=== PATIENT | female | born 1990 | race African-American/Black ===

== ENCOUNTER 2021-03-17 11:30 | Emergency (ER) | payer SELFPAY ==
[2021-03-17 13:32] LABS: #Eosinphils 0.1 thou/uL (0.0-0.7); #Lymphocytes 1.5 thou/uL (1.20-3.40); #Monocytes 0.4 thou/uL (0.11-0.59); #Neutrophils 3.8 thou/uL (1.40-6.50); %Eosinophils 1.9 % (0.0-10.0); %Lymphocytes 25.5 % (21.0-51.0); %Monocytes 7.4 % (0.0-10.0); %Neutrophils 65.2 % (42.0-75.0); Hemoglobin 14.1 g/dL (12.0-16.0); Mean Corpuscular HGB CONC 32.1 g/dL (32.0-36.0); Mean Corpuscular Hemoglobin 28.3 pg (27.0-31.0); Mean Corpuscular Volume 88.1 fL (78.0-98.0); Mean Platelet Volume 9.4 fL (7.4-10.4); Platelet Count 221 thou/uL (130-400); RBC Distribution Width 14.5 % (11.5-14.5); Red Blood Cell (RBC) Count 4.97 mill/uL (4.20-5.40); White Blood Cell (WBC) Count 5.8 thou/uL (4.8-10.8)
[2021-03-17] MEDS ORDERED: Ibuprofen 800 MG TAB ONE (14:04)
[2021-03-17] MEDS ORDERED: Acetaminophen 500 MG TAB ONE (14:04)
[2021-03-17 14:06] LABS: ALT (SGPT) 17 U/L (8-55); AST (SGOT) 18 U/L (5-34); Albumin 3.5 g/dL (3.5-5.0); Alkaline Phosphatase 63 U/L (40-110); Anion Gap 12 mmol/L (10-20); BUN (Urea Nitrogen) 10 mg/dL (7.0-18.7); Bilirubin, Total 0.6 mg/dL (0.2-1.2); Calc. Creatinine Clearance 0 mL/min (70-130); Calcium 9.1 mg/dL (7.8-10.44); Carbon Dioxide 22 mmol/L (22-29); Chloride 106 mmol/L (98-107); Globulin 5.1 g/dL (2.4-3.5); Glucose 103 mg/dL (70-105); Potassium 3.6 mmol/L (3.5-5.1); Protein, Total 8.6 g/dL (6.0-8.3); Sodium 136 mmol/L (136-145)
== END 2021-03-17 14:56 | disposition home or self-care (01) ==
LOC: ERS 11:30
DX: L08.0 Pyoderma (principal); M32.9 Systemic lupus erythematosus, unspecified; Z79.899 Other long term (current) drug therapy; Z79.52 Long term (current) use of systemic steroids; I10 Essential (primary) hypertension
CPT/HCPCS: 36415; 80053; 85025; 87040; 99283

== ENCOUNTER 2022-06-28 17:29 | Inpatient (IN) | payer BC ==
[2022-06-28] MEDS ORDERED: Ondansetron PF 4 MG/2 ML Vial IVP PRN (19:47)
[2022-06-28] MEDS ORDERED: Acetaminophen 325 MG TAB PO PRN (19:47)
[2022-06-28] MEDS ORDERED: Ondansetron ODT 4 MG TAB PO PRN (19:47)
[2022-06-28] MEDS ORDERED: Potassium Chloride 20 MEQ TAB PO SCH (21:00)
[2022-06-28 21:07] LABS: Hemoglobin 12.5 g/dL (12.0-16.0); Mean Corpuscular HGB CONC 33.1 g/dL (32.0-36.0); Mean Corpuscular Hemoglobin 29.8 pg (27.0-31.0); Platelet Count 196 10x3/uL (130-400); RBC Distribution Width 13.2 % (11.5-14.5); Red Blood Cell (RBC) Count 4.21 mill/uL (4.20-5.40); White Blood Cell (WBC) Count 3.6 10x3/uL (4.8-10.8)
[2022-06-28 21:22] LABS: Anion Gap 10 mmol/L (10-20); BUN (Urea Nitrogen) 9 mg/dL (7.0-18.7); Calc. Creatinine Clearance 0 mL/min (70-130); Calcium 8.9 mg/dL (7.8-10.44); Carbon Dioxide 19 mmol/L (22-29); Chloride 110 mmol/L (98-107); Estimated GFR 86; Glucose 71 mg/dL (70-105); Phosphorus 3.5 mg/dL (2.3-4.7); Potassium 3.4 mmol/L (3.5-5.1); Sodium 136 mmol/L (136-145)
[2022-06-28] MEDS: Metoprolol Tartrate 25 MG TAB PO SCH (21:24)
[2022-06-28 21:27] VITALS: BMI 44.3
[2022-06-28 21:28] LABS: Band 8 % (5-11); Eosinophils 4 % (0-10); Lymphocytes 23 % (21-51); MDiff Complete? YES; Monocytes 14 % (0-10); Neutrophil 50 % (42-75)
[2022-06-28] MEDS: VANCOMYCIN 2 GRAM/500 ML BAG 2 GM in Premix Bag 1 BAG IVPB SCH (22:14)
[2022-06-28] MEDS: Morphine 4 MG/ML VIAL SLOW IVP PRN (22:15)
[2022-06-28] MEDS: diphenhydrAMINE 50 MG/ML VIAL IVP SCH (22:15)
[2022-06-28] MEDS: Apixaban 5 MG TAB PO SCH (22:16)
[2022-06-28] MEDS ORDERED: Electrolyte Replacement Protocol 1 EACH FS SCH (23:15)
[2022-06-29] MEDS ORDERED: Magnesium 2 GM/50 ML(in water) 2 GM in Premix Bag 1 BAG IVPB SCH ×2 (01:00→21:30)
[2022-06-29] MEDS: Morphine 4 MG/ML VIAL SLOW IVP PRN ×5 (02:26→21:30)
[2022-06-29] MEDS: diphenhydrAMINE 50 MG/ML VIAL IVP SCH ×3 (06:25→21:32)
[2022-06-29] MEDS: VANCOMYCIN 2 GRAM/500 ML BAG 2 GM in Premix Bag 1 BAG IVPB SCH ×3 (06:26→22:53)
[2022-06-29] MEDS: Lisinopril 10 MG TAB PO SCH (08:38)
[2022-06-29] MEDS: Apixaban 5 MG TAB PO SCH ×2 (08:40→21:27)
[2022-06-29] MEDS: DULoxetine 30 MG CAP PO SCH (08:40)
[2022-06-29] MEDS: Metoprolol Tartrate 25 MG TAB PO SCH ×2 (08:40→21:27)
[2022-06-29] MEDS ORDERED: Hydroxychloroquine Sulfate 200 MG TAB PO SCH (09:00)
[2022-06-29] MEDS ORDERED: Mycophenolate 250 MG CAP PO SCH (09:00)
[2022-06-29] MEDS ORDERED: Acetaminophen/Codeine 30-300mg Tablet PO PRN (14:01)
[2022-06-29] MEDS: Clindamycin/D5W 900 MG in Premix Bag 1 BAG IVPB SCH ×2 (15:53→21:27)
[2022-06-29 17:14] LABS: #Eosinphils 0.2 thou/uL (0.0-0.7); #Lymphocytes 0.9 thou/uL (1.20-3.40); #Monocytes 0.5 thou/uL (0.11-0.59); #Neutrophils 1.7 thou/uL (1.40-6.50); %Basophils 0.2 % (0.0-1.0); %Lymphocytes 28.6 % (21.0-51.0); %Monocytes 14.4 % (0.0-10.0); %Neutrophils 51.8 % (42.0-75.0); Hemoglobin 12.2 g/dL (12.0-16.0); Mean Corpuscular HGB CONC 34.1 g/dL (32.0-36.0); Mean Corpuscular Hemoglobin 30.5 pg (27.0-31.0); Mean Corpuscular Volume 89.3 fl (78.0-98.0); Mean Platelet Volume 10.3 fL (7.4-10.4); Platelet Count 167 10x3/uL (130-400); RBC Distribution Width 13.2 % (11.5-14.5); Red Blood Cell (RBC) Count 4.01 mill/uL (4.20-5.40); White Blood Cell (WBC) Count 3.2 10x3/uL (4.8-10.8)
[2022-06-29 17:25] LABS: Anion Gap 11 mmol/L (10-20); BUN (Urea Nitrogen) 10 mg/dL (7.0-18.7); Calc. Creatinine Clearance 208 mL/min (70-130); Calcium 8.4 mg/dL (7.8-10.44); Carbon Dioxide 20 mmol/L (22-29); Chloride 109 mmol/L (98-107); Estimated GFR 92; Glucose 91 mg/dL (70-105); Potassium 3.8 mmol/L (3.5-5.1); Sodium 136 mmol/L (136-145)
[2022-06-29] MEDS: Acetaminophen/Codeine 30-300mg Tablet PO PRN ×2 (17:48→23:54)
[2022-06-29] MEDS: Hydroxychloroquine Sulfate 200 MG TAB PO SCH (21:27)
[2022-06-29 21:58] LABS: Vancomycin, Trough 26.2 ug/mL
[2022-06-30 02:50] LABS: Vancomycin, Random 18.4 ug/mL (See Comment)
[2022-06-30] MEDS: Vancomycin 1.5 GRAM/300 ML BAG 1.5 GM in Premix Bag 1 BAG IVPB SCH ×3 (05:05→20:33)
[2022-06-30] MEDS: Clindamycin/D5W 900 MG in Premix Bag 1 BAG IVPB SCH (05:06)
[2022-06-30] MEDS: diphenhydrAMINE 50 MG/ML VIAL IVP SCH ×3 (05:06→20:38)
[2022-06-30] MEDS: Morphine 4 MG/ML VIAL SLOW IVP PRN ×4 (05:06→20:47)
[2022-06-30 06:44] LABS: Hemoglobin 12.5 g/dL (12.0-16.0); Mean Corpuscular HGB CONC 32.1 g/dL (32.0-36.0); Mean Corpuscular Hemoglobin 29.3 pg (27.0-31.0); Mean Corpuscular Volume 91.1 fl (78.0-98.0); Mean Platelet Volume 9.6 fL (7.4-10.4); Platelet Count 209 10x3/uL (130-400); RBC Distribution Width 13.5 % (11.5-14.5); Red Blood Cell (RBC) Count 4.27 mill/uL (4.20-5.40); White Blood Cell (WBC) Count 3.1 10x3/uL (4.8-10.8)
[2022-06-30 07:00] LABS: Anion Gap 11 mmol/L (10-20); BUN (Urea Nitrogen) 13 mg/dL (7.0-18.7); Calc. Creatinine Clearance 205 mL/min (70-130); Calcium 8.5 mg/dL (7.8-10.44); Carbon Dioxide 21 mmol/L (22-29); Chloride 109 mmol/L (98-107); Estimated GFR 91; Glucose 77 mg/dL (70-105); Magnesium 2.4 mg/dL (1.6-2.6); Sodium 137 mmol/L (136-145)
[2022-06-30 07:37] LABS: SARS-CoV-2 NAA Rapid Test Not Detected (NotDetected)
[2022-06-30 08:30] LABS: Band 13 % (5-11); Eosinophils 4 % (0-10); Lymphocytes 39 % (21-51); MDiff Complete? YES; Monocytes 13 % (0-10); Neutrophil 31 % (42-75); RBC Morphology Normal
[2022-06-30] MEDS: Metoprolol Tartrate 25 MG TAB PO SCH ×2 (08:43→20:33)
[2022-06-30] MEDS: Apixaban 5 MG TAB PO SCH ×2 (08:43→20:33)
[2022-06-30] MEDS: DULoxetine 30 MG CAP PO SCH (08:43)
[2022-06-30] MEDS: Lisinopril 10 MG TAB PO SCH (08:43)
[2022-06-30] MEDS: Acetaminophen/Codeine 30-300mg Tablet PO PRN ×3 (08:43→23:20)
[2022-06-30] MEDS: Hydroxychloroquine Sulfate 200 MG TAB PO SCH ×2 (08:43→20:35)
[2022-06-30 13:29] LABS: BHCG - Serum Negative (NEGATIVE); Pregs Control Background? CLEAR/WHITE (CLR/WHITE); Pregs Control Bar Appear? YES (CONTROL BAR)
[2022-06-30] MEDS: Nystatin Cream 30 GM TUBE TOP SCH ×2 (13:59→20:35)
[2022-06-30] MEDS: Ketoconazole 2% Cream 15 gm Tube TOP SCH ×2 (13:59→20:36)
[2022-06-30] MEDS: Mycophenolate 250 MG CAP PO SCH (20:34)
[2022-07-01] MEDS: diphenhydrAMINE 50 MG/ML VIAL IVP SCH ×3 (05:06→20:21)
[2022-07-01] MEDS: Morphine 4 MG/ML VIAL SLOW IVP PRN ×5 (05:06→21:07)
[2022-07-01] MEDS: Vancomycin 1.5 GRAM/300 ML BAG 1.5 GM in Premix Bag 1 BAG IVPB SCH ×2 (05:06→20:19)
[2022-07-01 05:08] LABS: Hemoglobin 11.4 g/dL (12.0-16.0); Mean Corpuscular HGB CONC 32.8 g/dL (32.0-36.0); Mean Corpuscular Hemoglobin 29.4 pg (27.0-31.0); Mean Corpuscular Volume 89.7 fl (78.0-98.0); Mean Platelet Volume 9.5 fL (7.4-10.4); Platelet Count 206 10x3/uL (130-400); RBC Distribution Width 13.2 % (11.5-14.5); Red Blood Cell (RBC) Count 3.89 mill/uL (4.20-5.40); White Blood Cell (WBC) Count 3.5 10x3/uL (4.8-10.8)
[2022-07-01 05:21] LABS: Anion Gap 10 mmol/L (10-20); BUN (Urea Nitrogen) 14 mg/dL (7.0-18.7); Calc. Creatinine Clearance 210 mL/min (70-130); Calcium 8.5 mg/dL (7.8-10.44); Carbon Dioxide 21 mmol/L (22-29); Chloride 110 mmol/L (98-107); Estimated GFR 93; Glucose 77 mg/dL (70-105); Potassium 4.1 mmol/L (3.5-5.1); Sodium 137 mmol/L (136-145)
[2022-07-01 05:23] LABS: Vancomycin, Trough 27.7 ug/mL
[2022-07-01] MEDS ORDERED: Lidocaine 1% w/Epinephrine 1:200K 30 ML VIAL FS SCH (05:30)
[2022-07-01 05:50] LABS: Band 11 % (5-11); Eosinophils 3 % (0-10); Lymphocytes 32 % (21-51); MDiff Complete? YES; Monocytes 12 % (0-10); Neutrophil 42 % (42-75)
[2022-07-01] MEDS: Lisinopril 10 MG TAB PO SCH (09:25)
[2022-07-01] MEDS: Mycophenolate 250 MG CAP PO SCH ×2 (09:26→20:19)
[2022-07-01] MEDS: DULoxetine 30 MG CAP PO SCH (09:26)
[2022-07-01] MEDS: Ketoconazole 2% Cream 15 gm Tube TOP SCH ×2 (09:27→20:21)
[2022-07-01] MEDS: Metoprolol Tartrate 25 MG TAB PO SCH ×2 (09:27→20:21)
[2022-07-01] MEDS: Nystatin Cream 30 GM TUBE TOP SCH ×2 (09:27→20:21)
[2022-07-01] MEDS: Hydroxychloroquine Sulfate 200 MG TAB PO SCH ×2 (09:27→20:20)
[2022-07-01] MEDS: Apixaban 5 MG TAB PO SCH ×2 (09:28→20:20)
[2022-07-01] MEDS: Acetaminophen/Codeine 30-300mg Tablet PO PRN (20:20)
[2022-07-02] MEDS: Acetaminophen/Codeine 30-300mg Tablet PO PRN (05:38)
[2022-07-02] MEDS: diphenhydrAMINE 50 MG/ML VIAL IVP SCH ×4 (06:45→21:17)
[2022-07-02] MEDS: Hydroxychloroquine Sulfate 200 MG TAB PO SCH ×2 (09:16→21:19)
[2022-07-02] MEDS: Apixaban 5 MG TAB PO SCH ×2 (09:16→21:19)
[2022-07-02] MEDS: Lisinopril 10 MG TAB PO SCH ×2 (09:16→21:19)
[2022-07-02] MEDS: Ketoconazole 2% Cream 15 gm Tube TOP SCH ×2 (09:16→21:18)
[2022-07-02] MEDS: Nystatin Cream 30 GM TUBE TOP SCH ×2 (09:16→21:18)
[2022-07-02] MEDS: Metoprolol Tartrate 25 MG TAB PO SCH ×2 (09:16→21:18)
[2022-07-02] MEDS: DULoxetine 30 MG CAP PO SCH (09:16)
[2022-07-02] MEDS: Mycophenolate 250 MG CAP PO SCH ×2 (09:22→21:17)
[2022-07-02] MEDS: Vancomycin 1.5 GRAM/300 ML BAG 1.5 GM in Premix Bag 1 BAG IVPB SCH ×2 (11:42→21:17)
[2022-07-02] MEDS: Morphine 4 MG/ML VIAL SLOW IVP PRN ×3 (11:42→21:24)
[2022-07-02] MEDS ORDERED: Amlodipine 10 MG TAB PO SCH (16:15)
[2022-07-02 16:56] LABS: Hemoglobin 11.2 g/dL (12.0-16.0); Mean Corpuscular HGB CONC 33.7 g/dL (32.0-36.0); Mean Corpuscular Hemoglobin 30.3 pg (27.0-31.0); Mean Corpuscular Volume 89.9 fl (78.0-98.0); Mean Platelet Volume 9.6 fL (7.4-10.4); Platelet Count 230 10x3/uL (130-400); RBC Distribution Width 13.2 % (11.5-14.5); Red Blood Cell (RBC) Count 3.71 mill/uL (4.20-5.40); White Blood Cell (WBC) Count 3.5 10x3/uL (4.8-10.8)
[2022-07-02 17:16] LABS: Anion Gap 8 mmol/L (10-20); BUN (Urea Nitrogen) 12 mg/dL (7.0-18.7); Calc. Creatinine Clearance 210 mL/min (70-130); Calcium 8.3 mg/dL (7.8-10.44); Carbon Dioxide 23 mmol/L (22-29); Chloride 109 mmol/L (98-107); Estimated GFR 93; Glucose 93 mg/dL (70-105); Sodium 136 mmol/L (136-145)
[2022-07-02 19:09] LABS: Band 7 % (5-11); Eosinophils 3 % (0-10); Lymphocytes 36 % (21-51); MDiff Complete? YES; Monocytes 12 % (0-10); Neutrophil 41 % (42-75); Platelet Morphology Comment Appears Adequate; RBC Morphology Normal
[2022-07-03] MEDS: Morphine 4 MG/ML VIAL SLOW IVP PRN ×5 (01:54→21:07)
[2022-07-03] MEDS: diphenhydrAMINE 50 MG/ML VIAL IVP SCH ×4 (05:41→21:03)
[2022-07-03 06:11] LABS: Hemoglobin 11.4 g/dL (12.0-16.0); Mean Corpuscular HGB CONC 33.9 g/dL (32.0-36.0); Mean Corpuscular Hemoglobin 30.5 pg (27.0-31.0); Platelet Count 225 10x3/uL (130-400); RBC Distribution Width 13.1 % (11.5-14.5); Red Blood Cell (RBC) Count 3.75 mill/uL (4.20-5.40); White Blood Cell (WBC) Count 3.3 10x3/uL (4.8-10.8)
[2022-07-03 06:29] LABS: Anion Gap 10 mmol/L (10-20); BUN (Urea Nitrogen) 10 mg/dL (7.0-18.7); Calc. Creatinine Clearance 218 mL/min (70-130); Calcium 8.6 mg/dL (7.8-10.44); Carbon Dioxide 23 mmol/L (22-29); Chloride 107 mmol/L (98-107); Estimated GFR 97; Glucose 91 mg/dL (70-105); Potassium 3.9 mmol/L (3.5-5.1); Sodium 136 mmol/L (136-145)
[2022-07-03 06:48] LABS: Band 1 % (5-11); Eosinophils 3 % (0-10); Lymphocytes 38 % (21-51); MDiff Complete? YES; Monocytes 16 % (0-10); Neutrophil 41 % (42-75); Platelet Morphology Comment Appears Adequate; RBC Morphology Normal
[2022-07-03 08:25] LABS: Vancomycin, Trough 17.2 ug/mL
[2022-07-03] MEDS: DULoxetine 30 MG CAP PO SCH (09:24)
[2022-07-03] MEDS: Lisinopril 10 MG TAB PO SCH ×2 (09:24→21:06)
[2022-07-03] MEDS: Metoprolol Tartrate 25 MG TAB PO SCH ×2 (09:24→21:06)
[2022-07-03] MEDS: Apixaban 5 MG TAB PO SCH ×2 (09:24→21:04)
[2022-07-03] MEDS: Mycophenolate 250 MG CAP PO SCH ×2 (09:24→21:06)
[2022-07-03] MEDS: Amlodipine 10 MG TAB PO SCH (09:25)
[2022-07-03] MEDS: Hydroxychloroquine Sulfate 200 MG TAB PO SCH ×2 (09:25→21:04)
[2022-07-03] MEDS: Ketoconazole 2% Cream 15 gm Tube TOP SCH ×2 (09:25→21:04)
[2022-07-03] MEDS: Nystatin Cream 30 GM TUBE TOP SCH ×2 (09:26→21:06)
[2022-07-03] MEDS: Vancomycin 1.5 GRAM/300 ML BAG 1.5 GM in Premix Bag 1 BAG IVPB SCH ×2 (09:26→21:03)
[2022-07-04] MEDS: Morphine 4 MG/ML VIAL SLOW IVP PRN ×5 (01:40→21:19)
[2022-07-04] MEDS: diphenhydrAMINE 50 MG/ML VIAL IVP SCH ×3 (05:15→13:04)
[2022-07-04 06:42] LABS: Hemoglobin 12.1 g/dL (12.0-16.0); Mean Corpuscular HGB CONC 32.3 g/dL (32.0-36.0); Mean Corpuscular Hemoglobin 29.5 pg (27.0-31.0); Mean Corpuscular Volume 91.3 fl (78.0-98.0); Mean Platelet Volume 9.1 fL (7.4-10.4); Platelet Count 229 10x3/uL (130-400); RBC Distribution Width 13.3 % (11.5-14.5); Red Blood Cell (RBC) Count 4.12 mill/uL (4.20-5.40)
[2022-07-04 06:43] LABS: Lymphocytes 44 % (21-51); MDiff Complete? YES; Monocytes 12 % (0-10); Neutrophil 44 % (42-75); Platelet Morphology Comment Appears Adequate; RBC Morphology Normal
[2022-07-04 06:48] LABS: Anion Gap 12 mmol/L (10-20); BUN (Urea Nitrogen) 12 mg/dL (7.0-18.7); Calc. Creatinine Clearance 213 mL/min (70-130); Carbon Dioxide 17 mmol/L (22-29); Chloride 109 mmol/L (98-107); Estimated GFR 95; Glucose 88 mg/dL (70-105); Potassium 4.3 mmol/L (3.5-5.1); Sodium 134 mmol/L (136-145)
[2022-07-04] MEDS: Amlodipine 10 MG TAB PO SCH (09:22)
[2022-07-04] MEDS: Hydroxychloroquine Sulfate 200 MG TAB PO SCH ×2 (09:23→21:18)
[2022-07-04] MEDS: Lisinopril 10 MG TAB PO SCH ×2 (09:23→21:18)
[2022-07-04] MEDS: DULoxetine 30 MG CAP PO SCH (09:23)
[2022-07-04] MEDS: Mycophenolate 250 MG CAP PO SCH ×2 (09:24→21:19)
[2022-07-04] MEDS: Metoprolol Tartrate 25 MG TAB PO SCH ×2 (09:24→21:18)
[2022-07-04] MEDS: Apixaban 5 MG TAB PO SCH ×3 (09:24→21:19)
[2022-07-04] MEDS: Nystatin Cream 30 GM TUBE TOP SCH ×2 (09:26→21:45)
[2022-07-04] MEDS: Ketoconazole 2% Cream 15 gm Tube TOP SCH ×2 (09:27→21:45)
[2022-07-04] MEDS: Vancomycin 1.5 GRAM/300 ML BAG 1.5 GM in Premix Bag 1 BAG IVPB SCH ×2 (10:07→21:19)
[2022-07-04] MEDS: Acetaminophen/Codeine 30-300mg Tablet PO PRN (13:03)
[2022-07-05] MEDS: diphenhydrAMINE 50 MG/ML VIAL IVP SCH ×6 (00:15→22:47)
[2022-07-05] MEDS: Morphine 4 MG/ML VIAL SLOW IVP PRN ×4 (04:27→20:21)
[2022-07-05 09:43] LABS: Vancomycin, Trough 16.4 ug/mL
[2022-07-05] MEDS: Hydroxychloroquine Sulfate 200 MG TAB PO SCH ×2 (09:51→20:22)
[2022-07-05] MEDS: Amlodipine 10 MG TAB PO SCH (09:52)
[2022-07-05] MEDS: Apixaban 5 MG TAB PO SCH ×2 (09:52→20:20)
[2022-07-05] MEDS: DULoxetine 30 MG CAP PO SCH (09:52)
[2022-07-05] MEDS: Lisinopril 10 MG TAB PO SCH ×2 (09:52→20:20)
[2022-07-05] MEDS: Metoprolol Tartrate 25 MG TAB PO SCH ×2 (09:52→20:20)
[2022-07-05] MEDS: Vancomycin 1.5 GRAM/300 ML BAG 1.5 GM in Premix Bag 1 BAG IVPB SCH ×2 (09:54→20:20)
[2022-07-05] MEDS: Mycophenolate 250 MG CAP PO SCH ×2 (09:55→20:21)
[2022-07-05] MEDS: Nystatin Cream 30 GM TUBE TOP SCH ×2 (10:11→20:23)
[2022-07-05] MEDS: Ketoconazole 2% Cream 15 gm Tube TOP SCH ×2 (10:12→20:23)
[2022-07-05] MEDS: Famotidine 20 MG TAB PO SCH (20:20)
[2022-07-06] MEDS: diphenhydrAMINE 50 MG/ML VIAL IVP SCH ×5 (04:38→21:31)
[2022-07-06] MEDS: Morphine 4 MG/ML VIAL SLOW IVP PRN ×2 (04:39→08:32)
[2022-07-06] MEDS: Vancomycin 1.5 GRAM/300 ML BAG 1.5 GM in Premix Bag 1 BAG IVPB SCH ×2 (08:32→21:31)
[2022-07-06] MEDS: DULoxetine 30 MG CAP PO SCH (08:34)
[2022-07-06] MEDS: Famotidine 20 MG TAB PO SCH ×2 (08:34→21:31)
[2022-07-06] MEDS: Hydroxychloroquine Sulfate 200 MG TAB PO SCH ×2 (08:34→21:32)
[2022-07-06] MEDS: Amlodipine 10 MG TAB PO SCH (08:34)
[2022-07-06] MEDS: Lisinopril 10 MG TAB PO SCH ×2 (08:34→21:32)
[2022-07-06] MEDS: Metoprolol Tartrate 25 MG TAB PO SCH ×2 (08:34→21:31)
[2022-07-06] MEDS: Apixaban 5 MG TAB PO SCH ×2 (08:34→21:32)
[2022-07-06] MEDS: Mycophenolate 250 MG CAP PO SCH ×2 (08:34→21:31)
[2022-07-06] MEDS: Nystatin Cream 30 GM TUBE TOP SCH ×2 (08:35→21:34)
[2022-07-06] MEDS: Ketoconazole 2% Cream 15 gm Tube TOP SCH ×2 (08:35→21:34)
[2022-07-06 09:57] LABS: Anion Gap 9 mmol/L (10-20); BUN (Urea Nitrogen) 10 mg/dL (7.0-18.7); Calc. Creatinine Clearance 205 mL/min (70-130); Calcium 8.5 mg/dL (7.8-10.44); Carbon Dioxide 24 mmol/L (22-29); Chloride 108 mmol/L (98-107); Estimated GFR 91; Glucose 91 mg/dL (70-105); Sodium 137 mmol/L (136-145)
[2022-07-06 11:37] LABS: Band 3 % (5-11); Eosinophils 5 % (0-10); Lymphocytes 41 % (21-51); MDiff Complete? YES; Mean Corpuscular HGB CONC 32.3 g/dL (32.0-36.0); Mean Corpuscular Hemoglobin 28.8 pg (27.0-31.0); Mean Corpuscular Volume 89.1 fl (78.0-98.0); Mean Platelet Volume 8.1 fL (7.4-10.4); Monocytes 19 % (0-10); Neutrophil 30 % (42-75); Platelet Count 247 10x3/uL (130-400); RBC Distribution Width 12.7 % (11.5-14.5); RBC Morphology Normal; Red Blood Cell (RBC) Count 4.17 mill/uL (4.20-5.40); White Blood Cell (WBC) Count 3.1 10x3/uL (4.8-10.8)
[2022-07-06] MEDS: HYDROcodone/Acetaminophen 7.5/325 mg Tablet PO PRN ×2 (13:08→21:32)
[2022-07-06] MEDS: Acetaminophen/Codeine 30-300mg Tablet PO PRN (17:50)
[2022-07-06 20:38] LABS: Vancomycin, Trough 15.9 ug/mL
[2022-07-07] MEDS: Acetaminophen/Codeine 30-300mg Tablet PO PRN ×3 (00:27→23:16)
[2022-07-07] MEDS: diphenhydrAMINE 50 MG/ML VIAL IVP SCH ×3 (05:36→20:21)
[2022-07-07] MEDS: HYDROcodone/Acetaminophen 7.5/325 mg Tablet PO PRN (05:36)
[2022-07-07 08:41] LABS: #Eosinphils 0.1 thou/uL (0.0-0.7); #Lymphocytes 1.2 thou/uL (1.20-3.40); #Monocytes 0.4 thou/uL (0.11-0.59); #Neutrophils 1.1 thou/uL (1.40-6.50); %Basophils 0.4 % (0.0-1.0); %Eosinophils 3.6 % (0.0-10.0); %Lymphocytes 44.2 % (21.0-51.0); %Monocytes 12.6 % (0.0-10.0); %Neutrophils 39.2 % (42.0-75.0); Hemoglobin 12.5 g/dL (12.0-16.0); Mean Corpuscular HGB CONC 32.8 g/dL (32.0-36.0); Mean Corpuscular Volume 88.4 fl (78.0-98.0); Mean Platelet Volume 9.1 fL (7.4-10.4); Platelet Count 173 10x3/uL (130-400); White Blood Cell (WBC) Count 2.8 10x3/uL (4.8-10.8)
[2022-07-07] MEDS: Vancomycin 1.5 GRAM/300 ML BAG 1.5 GM in Premix Bag 1 BAG IVPB SCH ×2 (08:51→20:22)
[2022-07-07] MEDS: Apixaban 5 MG TAB PO SCH ×2 (08:53→20:19)
[2022-07-07] MEDS: Amlodipine 10 MG TAB PO SCH (08:54)
[2022-07-07] MEDS: Famotidine 20 MG TAB PO SCH ×2 (08:55→20:20)
[2022-07-07] MEDS: DULoxetine 30 MG CAP PO SCH (08:55)
[2022-07-07] MEDS: Hydroxychloroquine Sulfate 200 MG TAB PO SCH ×2 (08:55→20:21)
[2022-07-07 08:56] LABS: Anion Gap 10 mmol/L (10-20); BUN (Urea Nitrogen) 10 mg/dL (7.0-18.7); Calc. Creatinine Clearance 226 mL/min (70-130); Calcium 8.7 mg/dL (7.8-10.44); Carbon Dioxide 21 mmol/L (22-29); Chloride 108 mmol/L (98-107); Estimated GFR 102; Glucose 93 mg/dL (70-105); Potassium 4.1 mmol/L (3.5-5.1); Sodium 135 mmol/L (136-145)
[2022-07-07] MEDS: Ketoconazole 2% Cream 15 gm Tube TOP SCH ×2 (08:56→20:21)
[2022-07-07] MEDS: Lisinopril 10 MG TAB PO SCH ×2 (08:56→20:19)
[2022-07-07] MEDS: Metoprolol Tartrate 25 MG TAB PO SCH ×2 (08:57→20:21)
[2022-07-07] MEDS: Mycophenolate 250 MG CAP PO SCH ×2 (08:58→20:20)
[2022-07-07] MEDS: Nystatin Cream 30 GM TUBE TOP SCH ×2 (08:59→20:21)
[2022-07-07] MEDS: Terbinafine 250 MG TAB PO SCH (15:00)
[2022-07-08] MEDS: Acetaminophen/Codeine 30-300mg Tablet PO PRN ×3 (04:54→20:43)
[2022-07-08] MEDS ORDERED: diphenhydrAMINE 25 MG CAP PO SCH (05:15)
[2022-07-08] MEDS: Vancomycin 1.5 GRAM/300 ML BAG 1.5 GM in Premix Bag 1 BAG IVPB SCH ×2 (09:49→21:43)
[2022-07-08] MEDS: diphenhydrAMINE 50 MG/ML VIAL IVP SCH ×2 (09:50→20:44)
[2022-07-08] MEDS: Hydroxychloroquine Sulfate 200 MG TAB PO SCH ×2 (09:51→20:44)
[2022-07-08] MEDS: Amlodipine 10 MG TAB PO SCH (09:51)
[2022-07-08] MEDS: Famotidine 20 MG TAB PO SCH ×2 (09:51→20:45)
[2022-07-08] MEDS: Apixaban 5 MG TAB PO SCH ×2 (09:51→20:45)
[2022-07-08] MEDS: Lisinopril 10 MG TAB PO SCH ×2 (09:51→20:44)
[2022-07-08] MEDS: DULoxetine 30 MG CAP PO SCH (09:51)
[2022-07-08] MEDS: Metoprolol Tartrate 25 MG TAB PO SCH ×2 (09:51→20:44)
[2022-07-08] MEDS: Nystatin Cream 30 GM TUBE TOP SCH ×2 (09:52→20:46)
[2022-07-08] MEDS: Mycophenolate 250 MG CAP PO SCH ×2 (09:52→21:43)
[2022-07-08] MEDS: Ketoconazole 2% Cream 15 gm Tube TOP SCH ×3 (09:53→20:45)
[2022-07-08 11:56] LABS: #Basophils 0.1 thou/uL (0.0-0.2); #Eosinphils 0.1 thou/uL (0.0-0.7); #Monocytes 0.4 thou/uL (0.11-0.59); #Neutrophils 1.8 thou/uL (1.40-6.50); %Basophils 1.8 % (0.0-1.0); %Eosinophils 3.4 % (0.0-10.0); %Lymphocytes 29.7 % (21.0-51.0); %Monocytes 11.3 % (0.0-10.0); %Neutrophils 53.8 % (42.0-75.0); Hemoglobin 12.9 g/dL (12.0-16.0); Mean Corpuscular HGB CONC 32.9 g/dL (32.0-36.0); Mean Corpuscular Volume 88.1 fl (78.0-98.0); Mean Platelet Volume 8.5 fL (7.4-10.4); Platelet Count 193 10x3/uL (130-400); Red Blood Cell (RBC) Count 4.44 mill/uL (4.20-5.40); White Blood Cell (WBC) Count 3.4 10x3/uL (4.8-10.8)
[2022-07-08 12:08] LABS: Anion Gap 10 mmol/L (10-20); BUN (Urea Nitrogen) 10 mg/dL (7.0-18.7); Calc. Creatinine Clearance 213 mL/min (70-130); Calcium 9.1 mg/dL (7.8-10.44); Carbon Dioxide 18 mmol/L (22-29); Chloride 108 mmol/L (98-107); Estimated GFR 95; Glucose 91 mg/dL (70-105); Potassium 3.9 mmol/L (3.5-5.1); Sodium 132 mmol/L (136-145)
[2022-07-08 12:24] LABS: Vancomycin, Trough 54.4 ug/mL
[2022-07-08] MEDS: Terbinafine 250 MG TAB PO SCH (17:50)
[2022-07-09] MEDS: DULoxetine 30 MG CAP PO SCH (09:11)
[2022-07-09] MEDS: Mycophenolate 250 MG CAP PO SCH ×2 (09:11→20:06)
[2022-07-09] MEDS: Hydroxychloroquine Sulfate 200 MG TAB PO SCH ×2 (09:11→20:08)
[2022-07-09] MEDS: Apixaban 5 MG TAB PO SCH ×2 (09:11→20:07)
[2022-07-09] MEDS: Famotidine 20 MG TAB PO SCH ×2 (09:11→20:08)
[2022-07-09] MEDS: Doxycycline 100 MG CAP PO SCH ×2 (09:11→20:07)
[2022-07-09] MEDS: Lisinopril 10 MG TAB PO SCH ×2 (09:11→20:07)
[2022-07-09] MEDS: Amlodipine 10 MG TAB PO SCH (09:12)
[2022-07-09] MEDS: diphenhydrAMINE 50 MG/ML VIAL IVP SCH ×3 (09:13→20:10)
[2022-07-09] MEDS: Metoprolol Tartrate 25 MG TAB PO SCH ×2 (09:13→20:08)
[2022-07-09] MEDS: Nystatin Cream 30 GM TUBE TOP SCH ×2 (09:14→20:11)
[2022-07-09] MEDS: Ketoconazole 2% Cream 15 gm Tube TOP SCH ×3 (09:14→20:10)
[2022-07-09 14:15] LABS: Anion Gap 9 mmol/L (10-20); BUN (Urea Nitrogen) 8 mg/dL (7.0-18.7); Calc. Creatinine Clearance 218 mL/min (70-130); Calcium 8.9 mg/dL (7.8-10.44); Carbon Dioxide 22 mmol/L (22-29); Chloride 107 mmol/L (98-107); Estimated GFR 97; Glucose 96 mg/dL (70-105); Potassium 3.9 mmol/L (3.5-5.1); Sodium 134 mmol/L (136-145)
[2022-07-09 14:47] LABS: #Eosinphils 0.1 thou/uL (0.0-0.7); #Lymphocytes 1.1 thou/uL (1.20-3.40); #Monocytes 0.4 thou/uL (0.11-0.59); %Basophils 0.2 % (0.0-1.0); %Eosinophils 2.4 % (0.0-10.0); %Lymphocytes 29.6 % (21.0-51.0); %Monocytes 10.7 % (0.0-10.0); %Neutrophils 57.1 % (42.0-75.0); Hemoglobin 12.5 g/dL (12.0-16.0); Mean Corpuscular HGB CONC 32.6 g/dL (32.0-36.0); Mean Corpuscular Hemoglobin 28.9 pg (27.0-31.0); Mean Corpuscular Volume 88.6 fl (78.0-98.0); Platelet Count 254 10x3/uL (130-400); RBC Distribution Width 12.8 % (11.5-14.5); Red Blood Cell (RBC) Count 4.31 mill/uL (4.20-5.40); White Blood Cell (WBC) Count 3.5 10x3/uL (4.8-10.8)
[2022-07-09] MEDS: Terbinafine 250 MG TAB PO SCH (15:11)
[2022-07-09] MEDS: Acetaminophen/Codeine 30-300mg Tablet PO PRN (15:11)
[2022-07-10] MEDS: Acetaminophen/Codeine 30-300mg Tablet PO PRN (00:06)
[2022-07-10] MEDS: Doxycycline 100 MG CAP PO SCH ×2 (08:33→21:09)
[2022-07-10] MEDS: Hydroxychloroquine Sulfate 200 MG TAB PO SCH ×2 (08:33→21:08)
[2022-07-10] MEDS: DULoxetine 30 MG CAP PO SCH (08:33)
[2022-07-10] MEDS: Metoprolol Tartrate 25 MG TAB PO SCH ×2 (08:33→21:08)
[2022-07-10] MEDS: Lisinopril 10 MG TAB PO SCH ×2 (08:34→21:09)
[2022-07-10] MEDS: Ketoconazole 2% Cream 15 gm Tube TOP SCH (08:34)
[2022-07-10] MEDS: Amlodipine 10 MG TAB PO SCH (08:34)
[2022-07-10] MEDS: Famotidine 20 MG TAB PO SCH ×2 (08:34→21:10)
[2022-07-10] MEDS: Apixaban 5 MG TAB PO SCH ×2 (08:34→21:09)
[2022-07-10] MEDS: Mycophenolate 250 MG CAP PO SCH ×2 (08:34→21:08)
[2022-07-10] MEDS: Nystatin Cream 30 GM TUBE TOP SCH ×2 (08:35→21:10)
[2022-07-10] MEDS: diphenhydrAMINE 25 MG CAP PO PRN ×2 (08:37→21:09)
[2022-07-10] MEDS: Terbinafine 250 MG TAB PO SCH (14:17)
[2022-07-10] MEDS: HYDROcodone/Acetaminophen 7.5/325 mg Tablet PO PRN (21:09)
[2022-07-11] MEDS: HYDROcodone/Acetaminophen 7.5/325 mg Tablet PO PRN ×2 (09:39→21:43)
[2022-07-11] MEDS: Amlodipine 10 MG TAB PO SCH (09:39)
[2022-07-11] MEDS: Famotidine 20 MG TAB PO SCH ×2 (09:39→21:45)
[2022-07-11] MEDS: DULoxetine 30 MG CAP PO SCH (09:39)
[2022-07-11] MEDS: diphenhydrAMINE 25 MG CAP PO PRN ×2 (09:39→21:43)
[2022-07-11] MEDS: Hydroxychloroquine Sulfate 200 MG TAB PO SCH ×2 (09:40→21:44)
[2022-07-11] MEDS: Apixaban 5 MG TAB PO SCH ×2 (09:40→21:43)
[2022-07-11] MEDS: Doxycycline 100 MG CAP PO SCH ×2 (09:40→21:43)
[2022-07-11] MEDS: Lisinopril 10 MG TAB PO SCH ×2 (09:40→21:43)
[2022-07-11] MEDS: Mycophenolate 250 MG CAP PO SCH ×2 (09:40→21:43)
[2022-07-11] MEDS: Nystatin Cream 30 GM TUBE TOP SCH (09:40)
[2022-07-11] MEDS: Metoprolol Tartrate 25 MG TAB PO SCH ×2 (09:40→21:45)
[2022-07-11] MEDS: Ketoconazole 2% Cream 15 gm Tube TOP SCH (09:40)
[2022-07-11] MEDS: Nystatin Cream 15 GM TUBE TOP SCH ×2 (10:22→22:13)
[2022-07-11 12:46] LABS: Hemoglobin 12.8 g/dL (12.0-16.0); Mean Corpuscular HGB CONC 32.6 g/dL (32.0-36.0); Mean Corpuscular Hemoglobin 28.8 pg (27.0-31.0); Mean Corpuscular Volume 88.2 fl (78.0-98.0); Platelet Count 245 10x3/uL (130-400); RBC Distribution Width 12.8 % (11.5-14.5); Red Blood Cell (RBC) Count 4.46 mill/uL (4.20-5.40)
[2022-07-11 13:00] LABS: Anion Gap 12 mmol/L (10-20); BUN (Urea Nitrogen) 10 mg/dL (7.0-18.7); Calc. Creatinine Clearance 213 mL/min (70-130); Calcium 9.2 mg/dL (7.8-10.44); Carbon Dioxide 20 mmol/L (22-29); Chloride 108 mmol/L (98-107); Estimated GFR 95; Glucose 100 mg/dL (70-105); Potassium 3.9 mmol/L (3.5-5.1); Sodium 136 mmol/L (136-145)
[2022-07-11 13:07] LABS: Eosinophils 2 % (0-10); Lymphocytes 35 % (21-51); MDiff Complete? YES; Monocytes 16 % (0-10); Neutrophil 47 % (42-75); Platelet Morphology Comment Appears Adequate; RBC Morphology Normal
[2022-07-11] MEDS: Terbinafine 250 MG TAB PO SCH (14:16)
[2022-07-11] MEDS ORDERED: Ibuprofen 800 MG TAB PO SCH (21:15)
[2022-07-12] MEDS: diphenhydrAMINE 25 MG CAP PO PRN (09:40)
[2022-07-12] MEDS: HYDROcodone/Acetaminophen 7.5/325 mg Tablet PO PRN (09:40)
[2022-07-12] MEDS: Apixaban 5 MG TAB PO SCH (09:41)
[2022-07-12] MEDS: Famotidine 20 MG TAB PO SCH (09:41)
[2022-07-12] MEDS: Mycophenolate 250 MG CAP PO SCH (09:41)
[2022-07-12] MEDS: Amlodipine 10 MG TAB PO SCH (09:41)
[2022-07-12] MEDS: Metoprolol Tartrate 25 MG TAB PO SCH (09:41)
[2022-07-12] MEDS: Doxycycline 100 MG CAP PO SCH (09:41)
[2022-07-12] MEDS: DULoxetine 30 MG CAP PO SCH (09:41)
[2022-07-12] MEDS: Lisinopril 10 MG TAB PO SCH (09:42)
[2022-07-12] MEDS: Hydroxychloroquine Sulfate 200 MG TAB PO SCH (09:42)
[2022-07-12] MEDS: Nystatin Cream 15 GM TUBE TOP SCH (09:45)
[2022-07-12] MEDS: Ketoconazole 2% Cream 15 gm Tube TOP SCH (09:46)
[2022-07-12 10:22] LABS: Hemoglobin 12.5 g/dL (12.0-16.0); Mean Corpuscular HGB CONC 32.6 g/dL (32.0-36.0); Mean Corpuscular Hemoglobin 28.7 pg (27.0-31.0); Mean Corpuscular Volume 88.2 fl (78.0-98.0); Mean Platelet Volume 8.4 fL (7.4-10.4); Platelet Count 275 10x3/uL (130-400); RBC Distribution Width 12.6 % (11.5-14.5); Red Blood Cell (RBC) Count 4.34 mill/uL (4.20-5.40); White Blood Cell (WBC) Count 3.5 10x3/uL (4.8-10.8)
[2022-07-12 10:26] LABS: Anion Gap 11 mmol/L (10-20); BUN (Urea Nitrogen) 11 mg/dL (7.0-18.7); Calc. Creatinine Clearance 201 mL/min (70-130); Carbon Dioxide 21 mmol/L (22-29); Chloride 108 mmol/L (98-107); Estimated GFR 88; Glucose 97 mg/dL (70-105); Potassium 3.6 mmol/L (3.5-5.1); Sodium 136 mmol/L (136-145)
[2022-07-12 10:44] LABS: Band 4 % (5-11); Eosinophils 4 % (0-10); Lymphocytes 40 % (21-51); MDiff Complete? YES; Monocytes 12 % (0-10); Neutrophil 39 % (42-75); Platelet Morphology Comment Appears Adequate; RBC Morphology Normal
[2022-07-12] MEDS: Terbinafine 250 MG TAB PO SCH (15:26)
[2022-07-12 17:03] VITALS: BP 146/90; TEMP 98.3
== END 2022-07-12 17:55 | disposition home or self-care (01) | DRG 603 ==
LOC: SURG A 18:33
PROVIDERS: ADMIT Hospitalist; ATTEND Hospitalist
PROC: 0J9R0ZZ Drainage of Left Foot Subcutaneous Tissue and Fascia, Open Approach (ICD-10-PCS; principal; 2022-07-01)
PROC: 02HV33Z Insertion of Infusion Device into Superior Vena Cava, Percutaneous Approach (ICD-10-PCS; 2022-07-02)
PROC: B5181ZA Fluoroscopy of Superior Vena Cava using Low Osmolar Contrast, Guidance (ICD-10-PCS; 2022-07-02)
PROC: B548ZZA Ultrasonography of Superior Vena Cava, Guidance (ICD-10-PCS; 2022-07-02)
DX: L03.116 Cellulitis of left lower limb (principal); Z68.41 Body mass index [BMI] 40.0-44.9, adult; D84.821 Immunodeficiency due to drugs; Z20.822 Contact with and (suspected) exposure to COVID-19; B35.9 Dermatophytosis, unspecified; L93.0 Discoid lupus erythematosus; B95.62 Methicillin resistant Staphylococcus aureus infection as the cause of diseases classified elsewhere; L40.9 Psoriasis, unspecified; F41.9 Anxiety disorder, unspecified; E87.6 Hypokalemia; E66.01 Morbid (severe) obesity due to excess calories; I10 Essential (primary) hypertension; H60.91 Unspecified otitis externa, right ear; F32.A Depression, unspecified; G93.2 Benign intracranial hypertension; Z88.0 Allergy status to penicillin; Z88.2 Allergy status to sulfonamides; Z88.8 Allergy status to other drugs, medicaments and biological substances; Z88.1 Allergy status to other antibiotic agents; Z91.041 Radiographic dye allergy status; Z79.899 Other long term (current) drug therapy; Z79.01 Long term (current) use of anticoagulants; Z79.52 Long term (current) use of systemic steroids; Z90.49 Acquired absence of other specified parts of digestive tract; Z83.2 Family history of diseases of the blood and blood-forming organs and certain disorders involving the immune mechanism; Z82.49 Family history of ischemic heart disease and other diseases of the circulatory system; Z86.718 Personal history of other venous thrombosis and embolism; Z86.16 Personal history of COVID-19
CPT/HCPCS: 36415; 36569; 76999; 80048; 80202; 83735; 84100; 84703; 85025; 87070; 87077; 87102; 87186; 87205; 87811; 97139; C1751; J1200; J2270; J3370; J3475; J3490; J7517; U0002

== ENCOUNTER 2023-11-30 19:56 | Inpatient (IN) | payer BC ==
[~2023-11-30 19:56] MED LIST: Iopamidol 370 76% 100 ML VIAL ONE
[2023-11-30] MEDS ORDERED: methylPREDNISolone Sod Succ 40 MG VIAL ONE (20:55)
[2023-11-30] MEDS ORDERED: Sodium Chloride 0.9% 100 ML ONE (20:55)
[2023-11-30] MEDS ORDERED: diphenhydrAMINE 50 MG/ML VIAL ONE ×2 (20:55→22:56)
[2023-11-30] MEDS ORDERED: Cefepime 2 GM VIAL ONE (20:55)
[2023-11-30] MEDS ORDERED: Morphine 4 MG/ML VIAL ONE ×2 (20:55→23:23)
[2023-11-30] MEDS ORDERED: Vancomycin 1 GM/200 ML (FROZEN) BAG ONE (20:56)
[2023-11-30] MEDS ORDERED: Famotidine/PF 20 mg/2ml Vial ONE (20:56)
[2023-11-30 21:03] LABS: #Basophils Less than 0.03 10x3/uL (0.0-0.2); %Basophils 0.5 % (0.0-1.0); %Eosinophils 11.6 % (0.0-10.0); %Lymphocytes 31.7 % (21.0-51.0); %Monocytes 13.7 % (0.0-10.0); %Neutrophils 42.2 % (42.0-75.0); Hematocrit 36.7 % (36.0-47.0); Hemoglobin 12.2 g/dL (12.0-16.0); Mean Corpuscular HGB CONC 33.2 g/dL (32.0-36.0); Mean Corpuscular Hemoglobin 27.5 pg (27.0-31.0); Mean Corpuscular Volume 82.8 fL (78.0-98.0); Mean Platelet Volume 11.9 fL (7.4-10.4); Platelet Count 267 10x3/uL (130-400); RBC Distribution Width 14.3 % (11.5-14.5); Red Blood Cell (RBC) Count 4.43 mill/uL (4.20-5.40)
[2023-11-30 21:35] LABS: Bacteria/HPF None Seen HPF (None Seen); Bilirubin Negative (Negative); Blood, Urine 3+ (Negative); CAUTI Indications for Culture Pelvic or flank pain; Clarity Clear (Clear); Glucose, Urine (Dipstick) Normal (Negative); Ketone, Urine Negative (Negative); Leukocyte Negative Leu/uL (Negative); Nitrite Negative (Negative); Protein, Urine (Dipstick) 10 mg/dL (Neg-Trace); RBC/HPF Greater than 50 HPF (0-3); Specific Gravity, Urine 1.009 (1.002-1.036); Squamous Epithelial 0-3 HPF (0-3); Urobilinogen Normal mg/dL (Less than 2); WBC/HPF 0-3 HPF (0-3); pH, Urine 6.5 (5.0-9.0)
[2023-11-30 21:36] LABS: Urine Culture Reflex No No
[2023-11-30 22:04] LABS: ALT (SGPT) 12 U/L (8-55); AST (SGOT) 18 U/L (5-34); Albumin 3.1 g/dL (3.5-5.0); Alkaline Phosphatase 81 U/L (40-110); Anion Gap 14 mmol/L (10-20); BUN (Urea Nitrogen) 8 mg/dL (7.0-18.7); Bilirubin, Total 0.4 mg/dL (0.2-1.2); Calc. Creatinine Clearance 0 mL/min (70-130); Carbon Dioxide 21 mmol/L (22-29); Chloride 106 mmol/L (98-107); Estimated GFR 91; Globulin 6.4 g/dL (2.4-3.5); Glucose 90 mg/dL (70-105); Potassium 3.3 mmol/L (3.5-5.1); Protein, Total 9.5 g/dL (6.0-8.3); Sodium 138 mmol/L (136-145)
[2023-12-01] MEDS ORDERED: Morphine 4 MG/ML VIAL SLOW IVP PRN (00:09)
[2023-12-01] MEDS ORDERED: Acetaminophen 325 MG TAB PO PRN (00:46)
[2023-12-01] MEDS ORDERED: Ondansetron PF 4 MG/2 ML Vial IVP PRN (00:46)
[2023-12-01] MEDS: Potassium Chloride 20 MEQ TAB PO SCH (01:27)
[2023-12-01 02:21] VITALS: BMI 43.4
[2023-12-01] MEDS: hydrALAZINE 20 MG/ML VIAL SLOW IVP SCH (02:48)
[2023-12-01] MEDS: Morphine 4 MG/ML VIAL SLOW IVP PRN (02:56)
[2023-12-01] MEDS: diphenhydrAMINE 50 MG/ML VIAL IVP SCH ×2 (05:47→17:35)
[2023-12-01] MEDS: Vancomycin (BATCH) 1.5 GM in Premix 1 BAG IVPB SCH (05:47)
[2023-12-01 06:33] LABS: #Basophils Less than 0.03 10x3/uL (0.0-0.2); #Eosinphils Less than 0.03 10x3/uL (0.0-0.7); %Eosinophils 0.4 % (0.0-10.0); %Lymphocytes 15.3 % (21.0-51.0); %Monocytes 5.1 % (0.0-10.0); %Neutrophils 78.4 % (42.0-75.0); Hemoglobin 12.5 g/dL (12.0-16.0); Mean Corpuscular HGB CONC 32.1 g/dL (32.0-36.0); Mean Corpuscular Hemoglobin 26.8 pg (27.0-31.0); Mean Corpuscular Volume 83.7 fL (78.0-98.0); Platelet Count 279 10x3/uL (130-400); RBC Distribution Width 14.3 % (11.5-14.5); Red Blood Cell (RBC) Count 4.66 mill/uL (4.20-5.40)
[2023-12-01 06:49] LABS: Anion Gap 13 mmol/L (10-20); BUN (Urea Nitrogen) 7 mg/dL (7.0-18.7); Calc. Creatinine Clearance 214 mL/min (70-130); Calcium 9.7 mg/dL (7.8-10.44); Carbon Dioxide 19 mmol/L (22-29); Chloride 108 mmol/L (98-107); Estimated GFR 98; Glucose 123 mg/dL (70-105); Potassium 4.1 mmol/L (3.5-5.1); Sodium 136 mmol/L (136-145)
[2023-12-01] MEDS: predniSONE 20 MG TAB PO SCH (08:20)
[2023-12-01] MEDS: Metoprolol Tartrate 25 MG TAB PO SCH (08:20)
[2023-12-01] MEDS: Pantoprazole DR 40 MG TAB PO SCH (08:20)
[2023-12-01] MEDS: Lisinopril 10 MG TAB PO SCH (08:20)
[2023-12-01] MEDS: Hydrochlorothiazide 25 MG TAB PO SCH (08:20)
[2023-12-01] MEDS: Cefepime 1 GM in Sodium Chloride 0.9% 100 ML IVPB SCH (08:20)
[2023-12-01] MEDS: Hydroxychloroquine Sulfate 200 MG TAB PO SCH (08:21)
[2023-12-01] MEDS: Apixaban 5 MG TAB PO SCH (08:21)
[2023-12-01] MEDS ORDERED: HYDROcodone/Acetaminophen 5/325 mg Tablet PO PRN (13:15)
[2023-12-01] MEDS: Morphine IR 10 MG/5 ML UDCUP PO PRN (17:34)
[2023-12-01] MEDS: Cefepime 2 GM in Sodium Chloride 0.9% 100 ML IVPB SCH (21:50)
[2023-12-02] MEDS: HYDROcodone/Acetaminophen 5/325 mg Tablet PO SCH (00:53)
[2023-12-02] MEDS: diphenhydrAMINE 50 MG/ML VIAL IVP PRN (01:19)
[2023-12-02 05:07] LABS: #Basophils 0.04 10x3/uL (0.0-0.2); %Basophils 0.9 % (0.0-1.0); %Eosinophils 6.9 % (0.0-10.0); %Lymphocytes 20.6 % (21.0-51.0); %Neutrophils 60.7 % (42.0-75.0); Hematocrit 37.3 % (36.0-47.0); Hemoglobin 12.2 g/dL (12.0-16.0); Mean Corpuscular HGB CONC 32.7 g/dL (32.0-36.0); Mean Corpuscular Hemoglobin 27.4 pg (27.0-31.0); Mean Corpuscular Volume 83.8 fL (78.0-98.0); Mean Platelet Volume 11.5 fL (7.4-10.4); Platelet Count 202 10x3/uL (130-400); RBC Distribution Width 14.6 % (11.5-14.5); Red Blood Cell (RBC) Count 4.45 mill/uL (4.20-5.40)
[2023-12-02 05:19] LABS: Anion Gap 14 mmol/L (10-20); BUN (Urea Nitrogen) 13 mg/dL (7.0-18.7); Calc. Creatinine Clearance 151 mL/min (70-130); Carbon Dioxide 21 mmol/L (22-29); Chloride 108 mmol/L (98-107); Estimated GFR 65; Glucose 113 mg/dL (70-105); Potassium 3.4 mmol/L (3.5-5.1); Sodium 140 mmol/L (136-145)
[2023-12-02] MEDS: diphenhydrAMINE 25 MG CAP PO SCH (09:22)
[2023-12-02] MEDS: Potassium Chloride 20 MEQ TAB PO SCH (09:22)
[2023-12-02] MEDS: oxyCODONE 5 MG TAB PO PRN (09:25)
[2023-12-02] MEDS: Linezolid 600 MG TAB PO SCH ×2 (10:41→12:25)
[2023-12-02] MEDS: Potassium Chloride 20 MEQ in Lactated Ringer's 1,000 ML IV SCH (10:42)
[2023-12-02] MEDS: Acetaminophen 500 MG TAB PO SCH (10:42)
[2023-12-02] MEDS ORDERED: Vancomycin 1 GM in Sodium Chloride 0.9% 250 ML 300 ML IVPB SCH (11:36)
[2023-12-02] MEDS: diphenhydrAMINE 25 MG CAP PO PRN (12:00)
[2023-12-02] MEDS: hydrALAZINE 25 MG TAB PO PRN (13:02)
[2023-12-02] MEDS: Morphine 4 MG/ML VIAL SLOW IVP SCH (22:05)
[2023-12-02] MEDS: diphenhydrAMINE 50 MG/ML VIAL IVP SCH (22:08)
[2023-12-03 05:04] LABS: #Basophils 0.03 10x3/uL (0.0-0.2); %Basophils 0.5 % (0.0-1.0); %Eosinophils 5.4 % (0.0-10.0); %Lymphocytes 18.3 % (21.0-51.0); %Monocytes 10.8 % (0.0-10.0); %Neutrophils 64.2 % (42.0-75.0); Hematocrit 38.1 % (36.0-47.0); Hemoglobin 12.1 g/dL (12.0-16.0); Mean Corpuscular HGB CONC 31.8 g/dL (32.0-36.0); Mean Corpuscular Hemoglobin 27.1 pg (27.0-31.0); Mean Corpuscular Volume 85.4 fL (78.0-98.0); Mean Platelet Volume 11.7 fL (7.4-10.4); Platelet Count 262 10x3/uL (130-400); RBC Distribution Width 14.6 % (11.5-14.5); Red Blood Cell (RBC) Count 4.46 mill/uL (4.20-5.40)
[2023-12-03 05:25] LABS: Anion Gap 11 mmol/L (10-20); BUN (Urea Nitrogen) 16 mg/dL (7.0-18.7); Calc. Creatinine Clearance 185 mL/min (70-130); Calcium 8.9 mg/dL (7.8-10.44); Carbon Dioxide 21 mmol/L (22-29); Chloride 108 mmol/L (98-107); Estimated GFR 82; Glucose 119 mg/dL (70-105); Potassium 3.6 mmol/L (3.5-5.1); Sodium 136 mmol/L (136-145)
[2023-12-03 08:13] VITALS: BMI 43.4
[2023-12-03] MEDS: Lisinopril 20 MG TAB PO SCH (09:50)
[2023-12-03] MEDS: oxyCODONE 5 MG TAB PO PRN (16:45)
[2023-12-03 16:56] VITALS: TEMP 98
[2023-12-03 17:05] VITALS: BP 138/89
== END 2023-12-03 17:45 | disposition home or self-care (01) | DRG 603 ==
LOC: ERS 19:56 → SJJU 12-01 00:08
PROVIDERS: ADMIT Internal Medicine; ATTEND Hospitalist
DX: L02.212 Cutaneous abscess of back [any part, except buttock and flank] (principal); Z68.41 Body mass index [BMI] 40.0-44.9, adult; K05.20 Aggressive periodontitis, unspecified; I10 Essential (primary) hypertension; E66.01 Morbid (severe) obesity due to excess calories; F41.9 Anxiety disorder, unspecified; F32.A Depression, unspecified; M32.9 Systemic lupus erythematosus, unspecified; Z86.718 Personal history of other venous thrombosis and embolism; Z79.01 Long term (current) use of anticoagulants; Z88.0 Allergy status to penicillin; Z90.49 Acquired absence of other specified parts of digestive tract
CPT/HCPCS: 36415; 70491; 71045; 74177; 80048; 80053; 81001; 83605; 83735; 85025; 86141; 87040; 87086; 96365; 96366; 96367; 96375; 96376; 97139; J0360; J0692; J1200; J2270; J2920; J3370; J3370-JW; J3480; J3490; J7120; J7512; Q9967; S0028

== ENCOUNTER 2024-01-04 20:41 | Inpatient (IN) | payer BC ==
[2024-01-04 21:56] VITALS: BMI 42.1
[2024-01-04] MEDS ORDERED: Acetaminophen 325 MG TAB PO PRN (22:26)
[2024-01-04] MEDS: Ondansetron PF 4 MG/2 ML Vial IVP PRN (22:50)
[2024-01-04] MEDS: diphenhydrAMINE 50 MG/ML VIAL IVP SCH (22:52)
[2024-01-04] MEDS: Morphine 2 MG/ML VIAL SLOW IVP SCH (22:53)
[2024-01-04] MEDS ORDERED: Ipratropium/Albuterol 3 ML NEB EZPAP PRN (23:00)
[2024-01-05] MEDS ORDERED: traZODone HCl 50 MG TAB PO PRN (01:05)
[2024-01-05] MEDS: Morphine 2 MG/ML VIAL SLOW IVP PRN (04:39)
[2024-01-05] MEDS: diphenhydrAMINE 25 MG CAP PO PRN (06:47)
[2024-01-05 07:09] LABS: Hematocrit 47.6 % (36.0-47.0); Hemoglobin 15.5 g/dL (12.0-16.0); Mean Corpuscular HGB CONC 32.6 g/dL (32.0-36.0); Mean Corpuscular Hemoglobin 27.6 pg (27.0-31.0); Mean Corpuscular Volume 84.8 fL (78.0-98.0); Mean Platelet Volume 11.6 fL (7.4-10.4); Platelet Count 163 10x3/uL (130-400); Red Blood Cell (RBC) Count 5.61 mill/uL (4.20-5.40)
[2024-01-05 07:39] LABS: Anion Gap 14 mmol/L (10-20); BUN (Urea Nitrogen) 6 mg/dL (7.0-18.7); Calc. Creatinine Clearance 199 mL/min (70-130); Calcium 9.3 mg/dL (7.8-10.44); Carbon Dioxide 18 mmol/L (22-29); Chloride 112 mmol/L (98-107); Estimated GFR 93; Glucose 119 mg/dL (70-105); Potassium 4.8 mmol/L (3.5-5.1); Sodium 139 mmol/L (136-145)
[2024-01-05 07:45] LABS: Band 15 % (5-11); Lymphocytes 20 % (21-51); Monocytes 6 % (0-10); Neutrophil 59 % (42-75); Platelet Adequacy Comment Platelets Normal; RBC Morphology Within Normal Limits
[2024-01-05] MEDS ORDERED: Apixaban 5 MG TAB PO SCH (09:00)
[2024-01-05] MEDS: Lisinopril 10 MG TAB PO SCH (09:04)
[2024-01-05] MEDS: Hydroxychloroquine Sulfate 200 MG TAB PO SCH (09:05)
[2024-01-05] MEDS: NIFEdipine XL 30 MG ER.TAB PO SCH (09:05)
[2024-01-05] MEDS: Metoprolol Tartrate 25 MG TAB PO SCH (09:06)
[2024-01-05] MEDS: Apixaban 2.5 MG TAB PO SCH (09:07)
[2024-01-05] MEDS: Escitalopram Oxalate 10 mg Tablet PO SCH (09:08)
[2024-01-05 11:35] VITALS: BMI 42.1
[2024-01-05] MEDS: Ascorbic Acid 500 mg Chewable Tablet PO SCH (12:07)
[2024-01-05] MEDS: Cholecalciferol (Vitamin D3) 400 UNITS TAB PO SCH (12:07)
[2024-01-05] MEDS: Pantoprazole DR 40 MG TAB PO SCH (12:08)
[2024-01-05] MEDS: Zinc Sulfate 220 MG CAP PO SCH (12:08)
[2024-01-05] MEDS ORDERED: diphenhydrAMINE 50 MG/ML VIAL IVP PRN (14:06)
[2024-01-05] MEDS: NIRMATRELVIR 150 MG (X 2)/RITONAVIR 100 MG DOSE PACK PO SCH (15:14)
[2024-01-06] MEDS: Morphine 2 MG/ML VIAL SLOW IVP SCH (05:08)
[2024-01-06] MEDS: diphenhydrAMINE 50 MG/ML VIAL IVP SCH (05:09)
[2024-01-06 06:08] LABS: Hematocrit 39.2 % (36.0-47.0); Hemoglobin 12.2 g/dL (12.0-16.0); Mean Corpuscular HGB CONC 31.1 g/dL (32.0-36.0); Mean Corpuscular Hemoglobin 27.4 pg (27.0-31.0); Mean Corpuscular Volume 87.9 fL (78.0-98.0); Mean Platelet Volume 11.9 fL (7.4-10.4); Platelet Count 231 10x3/uL (130-400); RBC Distribution Width 15.5 % (11.5-14.5); Red Blood Cell (RBC) Count 4.46 mill/uL (4.20-5.40)
[2024-01-06 06:19] LABS: Anion Gap 8 mmol/L (10-20); BUN (Urea Nitrogen) 13 mg/dL (7.0-18.7); Calc. Creatinine Clearance 167 mL/min (70-130); Calcium 8.8 mg/dL (7.8-10.44); Carbon Dioxide 22 mmol/L (22-29); Chloride 111 mmol/L (98-107); Estimated GFR 76; Glucose 72 mg/dL (70-105); Potassium 3.4 mmol/L (3.5-5.1); Sodium 138 mmol/L (136-145)
[2024-01-06 06:30] LABS: Band 2 % (5-11); Eosinophils 4 % (0-10); Large Platelets 9.1 % (0-5); Lymphocytes 42 % (21-51); Monocytes 18 % (0-10); Neutrophil 31 % (42-75); Platelet Adequacy Comment Platelets Normal; RBC Morphology Within Normal Limits; Reactive Lymphocytes 1 % (0-10); Smudge Cells 13.1 %
[2024-01-06] MEDS: Potassium Chloride 20 MEQ TAB PO SCH (10:06)
[2024-01-06] MEDS: Benzonatate 100 MG CAP PO PRN (10:13)
[2024-01-06] MEDS: Triamcinolone 0.1% Cream 15 GM TUBE TOP PRN (12:10)
[2024-01-06 14:17] VITALS: BP 167/94; TEMP 98.3
[2024-01-08] MEDS ORDERED: Apixaban 5 MG TAB PO SCH (09:00)
== END 2024-01-06 16:05 | disposition home or self-care (01) | DRG 178 ==
LOC: T4-A 21:35 → OBSVTOIN 01-05 14:05
PROVIDERS: ADMIT Student in an Organized Health Care Education/Training Program; ATTEND Family Medicine
PROC: XW0DXF5 Introduction of Other New Technology Therapeutic Substance into Mouth and Pharynx, External Approach, New Technology Group 5 (ICD-10-PCS; principal; 2024-01-05)
DX: U07.1 COVID-19 (principal); D84.821 Immunodeficiency due to drugs; Z68.41 Body mass index [BMI] 40.0-44.9, adult; L93.0 Discoid lupus erythematosus; L40.9 Psoriasis, unspecified; I10 Essential (primary) hypertension; F41.9 Anxiety disorder, unspecified; E66.01 Morbid (severe) obesity due to excess calories; F32.A Depression, unspecified; Z88.1 Allergy status to other antibiotic agents; Z88.8 Allergy status to other drugs, medicaments and biological substances; Z88.2 Allergy status to sulfonamides; Z79.01 Long term (current) use of anticoagulants; Z91.041 Radiographic dye allergy status; Z79.899 Other long term (current) drug therapy; Z90.49 Acquired absence of other specified parts of digestive tract; Z82.49 Family history of ischemic heart disease and other diseases of the circulatory system; Z86.718 Personal history of other venous thrombosis and embolism
CPT/HCPCS: 36415; 71046; 78451; 80048; 85025; A9540; J0780; J1200; J2272; J2405; J8499

== ENCOUNTER 2024-01-06 17:03 | Inpatient (IN) | payer BC ==
[~2024-01-06 17:03] MED LIST changes: -Iopamidol 370 76% 100 ML VIAL ONE; +Iopamidol-370 76% 500 ML MDV (1 ML CHARGE) ONE
[2024-01-06] MEDS ORDERED: diphenhydrAMINE 50 MG/ML VIAL ONE (18:57)
[2024-01-06] MEDS ORDERED: Famotidine/PF 20 mg/2ml Vial ONE (18:58)
[2024-01-06] MEDS ORDERED: methylPREDNISolone Sod Succ 40 MG VIAL ONE (18:59)
[2024-01-06 19:07] LABS: Hematocrit 38.7 % (36.0-47.0); Hemoglobin 12.6 g/dL (12.0-16.0); Mean Corpuscular HGB CONC 32.6 g/dL (32.0-36.0); Mean Corpuscular Hemoglobin 28.4 pg (27.0-31.0); Mean Corpuscular Volume 87.2 fL (78.0-98.0); Mean Platelet Volume 11.6 fL (7.4-10.4); Platelet Count 266 10x3/uL (130-400); RBC Distribution Width 15.3 % (11.5-14.5); Red Blood Cell (RBC) Count 4.44 mill/uL (4.20-5.40)
[2024-01-06 19:16] LABS: Prothrombin Time 13.6 sec (12.0-14.7)
[2024-01-06 19:17] LABS: PTT 26.9 sec (22.9-36.1)
[2024-01-06 19:19] LABS: ALT (SGPT) 11 U/L (8-55); AST (SGOT) 15 U/L (5-34); Albumin 3.1 g/dL (3.5-5.0); Alkaline Phosphatase 66 U/L (40-110); Anion Gap 8 mmol/L (10-20); BUN (Urea Nitrogen) 11 mg/dL (7.0-18.7); Bilirubin, Total 0.5 mg/dL (0.2-1.2); Calc. Creatinine Clearance 0 mL/min (70-130); Calcium 8.8 mg/dL (7.8-10.44); Carbon Dioxide 24 mmol/L (22-29); Chloride 108 mmol/L (98-107); Estimated GFR 90; Globulin 5.7 g/dL (2.4-3.5); Glucose 80 mg/dL (70-105); Potassium 3.7 mmol/L (3.5-5.1); Protein, Total 8.8 g/dL (6.0-8.3); Sodium 136 mmol/L (136-145)
[2024-01-06 19:24] LABS: Troponin I Less than 0.010 ng/mL (< 0.028)
[2024-01-06 19:28] LABS: Band 7 % (5-11); Eosinophils 4 % (0-10); Lymphocytes 33 % (21-51); Microcytosis SLIGHT = 6-15 cells HPF (0-5); Monocytes 3 % (0-10); Neutrophil 53 % (42-75); Platelet Adequacy Comment Platelets Normal; Polychromasia SLIGHT = 2-3 cells HPF (0-2)
[2024-01-06] MEDS ORDERED: methylPREDNISolone Sod Succ/PF 125 MG/2 ML VIAL ONE (20:28)
[2024-01-06] MEDS ORDERED: Morphine 4 MG/ML VIAL ONE (21:23)
[2024-01-06] MEDS ORDERED: Acetaminophen 325 MG TAB PO PRN (22:30)
[2024-01-06] MEDS ORDERED: Ondansetron PF 4 MG/2 ML Vial IVP PRN (22:30)
[2024-01-06] MEDS ORDERED: Ondansetron ODT 4 MG TAB SL PRN (22:30)
[2024-01-06 22:54] VITALS: BMI 42.3
[2024-01-07] MEDS: Morphine 2 MG/ML VIAL SLOW IVP SCH (03:03)
[2024-01-07] MEDS: diphenhydrAMINE 50 MG/ML VIAL IVP SCH ×2 (03:04→10:37)
[2024-01-07] MEDS ORDERED: Morphine 4 MG/ML VIAL SLOW IVP PRN (08:40)
[2024-01-07] MEDS ORDERED: Albuterol 200 PUFF (6.7GM INHALER) INH PRN (08:40)
[2024-01-07] MEDS: Lisinopril 10 MG TAB PO SCH (10:36)
[2024-01-07] MEDS: Pantoprazole DR 40 MG TAB PO SCH (10:36)
[2024-01-07] MEDS: Metoprolol Tartrate 25 MG TAB PO SCH (10:36)
[2024-01-07] MEDS: Hydroxychloroquine Sulfate 200 MG TAB PO SCH (10:37)
[2024-01-07] MEDS: traMADol HCl 50 MG TAB PO PRN (10:37)
[2024-01-07] MEDS: Ascorbic Acid 500 mg Chewable Tablet PO SCH (10:38)
[2024-01-07] MEDS: Cholecalciferol (Vitamin D3) 400 UNITS TAB PO SCH (10:39)
[2024-01-07] MEDS: Escitalopram Oxalate 10 mg Tablet PO SCH (10:39)
[2024-01-07] MEDS: Apixaban 5 MG TAB PO SCH (10:39)
[2024-01-07] MEDS: Azithromycin 500 MG in Sodium Chloride 0.9% 250 ML 250 ML IVPB SCH (10:40)
[2024-01-07] MEDS: Azithromycin 500 MG VIAL ONE (10:41)
[2024-01-07] MEDS: Lorazepam 2 MG/ML VIAL SLOW IVP SCH (13:07)
[2024-01-07] MEDS: REMDESIVIR 200 MG in Sodium Chloride 0.9% 250 ML 210 ML IV SCH (15:42)
[2024-01-07] MEDS: Morphine 2 MG/ML VIAL SLOW IVP PRN (15:43)
[2024-01-07] MEDS: Vancomycin (BATCH) 2.5 GM in Premix 1 BAG IVPB SCH (17:13)
[2024-01-07] MEDS: diphenhydrAMINE 50 MG/ML VIAL IVP PRN (17:22)
[2024-01-07] MEDS ORDERED: Vancomycin 1 GM in Sodium Chloride 0.9% 250 ML 250 ML IVPB SCH (21:00)
[2024-01-07] MEDS: Vancomycin (BATCH) 1.25 GM in Premix 1 BAG IVPB SCH (23:05)
[2024-01-08 06:20] LABS: #Basophils 0.05 10x3/uL (0.0-0.2); %Eosinophils 6.2 % (0.0-10.0); %Lymphocytes 29.8 % (21.0-51.0); %Monocytes 10.3 % (0.0-10.0); %Neutrophils 52.1 % (42.0-75.0); Hematocrit 39.7 % (36.0-47.0); Hemoglobin 12.7 g/dL (12.0-16.0); Mean Corpuscular Hemoglobin 28.6 pg (27.0-31.0); Mean Corpuscular Volume 89.4 fL (78.0-98.0); Mean Platelet Volume 11.3 fL (7.4-10.4); Platelet Count 238 10x3/uL (130-400); RBC Distribution Width 15.3 % (11.5-14.5); Red Blood Cell (RBC) Count 4.44 mill/uL (4.20-5.40)
[2024-01-08 07:00] LABS: Vancomycin, Random 28.2 ug/mL (See Comment)
[2024-01-08 07:03] LABS: ALT (SGPT) 10 U/L (8-55); AST (SGOT) 12 U/L (5-34); Albumin 2.8 g/dL (3.5-5.0); Alkaline Phosphatase 65 U/L (40-110); Bilirubin, Direct 0.1 mg/dL (0.1-0.3); Bilirubin, Total 0.4 mg/dL (0.2-1.2); CRP,High Sensitivity (Inhouse) 0.23 mg/dL (< or = 0.5); Protein, Total 8.2 g/dL (6.0-8.3)
[2024-01-08 07:04] LABS: Anion Gap 10 mmol/L (10-20); BUN (Urea Nitrogen) 17 mg/dL (7.0-18.7); Calc. Creatinine Clearance 152 mL/min (70-130); Calcium 8.3 mg/dL (7.8-10.44); Carbon Dioxide 20 mmol/L (22-29); Cardiac Risk 6.9 (Less than 4.5); Chloride 110 mmol/L (98-107); Cholesterol 193 mg/dl (< 200 Desired); Estimated GFR 68; Glucose 105 mg/dL (70-105); HDL Cholesterol 28 mg/dL (>60 Neg Risk); LDL Cholesterol, Calculated 130 mg/dL; Potassium 3.9 mmol/L (3.5-5.1); Sodium 136 mmol/L (136-145); Triglycerides 177 mg/dL (Less than 150)
[2024-01-08] MEDS: predniSONE 20 MG TAB PO SCH (08:28)
[2024-01-08] MEDS: Benzonatate 100 MG CAP PO PRN (08:31)
[2024-01-08] MEDS: REMDESIVIR 100 MG in Sodium Chloride 0.9% 250 ML 230 ML IV SCH (14:37)
[2024-01-08] MEDS ORDERED: hydrALAZINE 20 MG/ML VIAL SLOW IVP PRN (15:03)
[2024-01-08] MEDS: Aspirin 81 mg Enteric Coated Tablet PO SCH (16:26)
[2024-01-08] MEDS: Atorvastatin Calcium 40 MG TAB PO SCH (21:16)
[2024-01-08] MEDS: traZODone HCl 50 MG TAB PO PRN (21:17)
[2024-01-09] MEDS: Vancomycin 1 GM in Premix 1 BAG IVPB SCH (01:11)
[2024-01-09 04:49] LABS: Hemoglobin A1c 5.6 % (4.0-6.0)
[2024-01-09 04:52] LABS: ALT (SGPT) 10 U/L (8-55); AST (SGOT) 12 U/L (5-34); Albumin 2.9 g/dL (3.5-5.0); Alkaline Phosphatase 66 U/L (40-110); Bilirubin, Direct 0.1 mg/dL (0.1-0.3); Bilirubin, Total 0.4 mg/dL (0.2-1.2); Protein, Total 8.6 g/dL (6.0-8.3)
[2024-01-09] MEDS ORDERED: Lorazepam 2 MG/ML VIAL SLOW IVP SCH (08:30)
[2024-01-09] MEDS: Aspirin 81 mg Enteric Coated Tablet PO SCH (08:36)
[2024-01-09] MEDS: Lisinopril 10 MG TAB PO SCH (22:06)
[2024-01-10] MEDS: Vancomycin (BATCH) 1.25 GM in Premix 1 BAG IVPB SCH (00:14)
[2024-01-10 05:42] LABS: Vancomycin, Random 22.4 ug/mL (See Comment)
[2024-01-10 05:45] LABS: ALT (SGPT) 8 U/L (8-55); AST (SGOT) 11 U/L (5-34); Albumin 2.6 g/dL (3.5-5.0); Alkaline Phosphatase 62 U/L (40-110); Bilirubin, Direct 0.1 mg/dL (0.1-0.3); Bilirubin, Total 0.3 mg/dL (0.2-1.2); Protein, Total 7.6 g/dL (6.0-8.3)
[2024-01-10] MEDS: Zinc Sulfate 220 MG CAP PO SCH (08:58)
[2024-01-10] MEDS: Metoprolol Tartrate 25 MG TAB PO SCH (08:59)
[2024-01-10] MEDS: diphenhydrAMINE 25 MG CAP PO PRN (11:22)
[2024-01-10] MEDS: Amlodipine 5 MG TAB PO SCH (17:34)
[2024-01-10] MEDS: Fluconazole In NaCl,Iso-Osm 400 MG in Premix 1 BAG IVPB SCH (21:19)
[2024-01-11 05:14] LABS: ALT (SGPT) 10 U/L (8-55); AST (SGOT) 12 U/L (5-34); Albumin 2.7 g/dL (3.5-5.0); Alkaline Phosphatase 59 U/L (40-110); Bilirubin, Direct 0.1 mg/dL (0.1-0.3); Bilirubin, Total 0.3 mg/dL (0.2-1.2); Protein, Total 7.6 g/dL (6.0-8.3)
[2024-01-11] MEDS: Azithromycin 250 MG TAB PO SCH (09:12)
[2024-01-11] MEDS: Amlodipine 5 MG TAB PO SCH (09:13)
[2024-01-11] MEDS: traMADol HCl 50 MG TAB PO PRN (12:31)
[2024-01-11] MEDS: Benzocaine/Menthol 1 LOZ LOZ PO PRN (12:31)
[2024-01-11] MEDS: Fluconazole In NaCl,Iso-Osm 200 MG in Premix 1 BAG IVPB SCH (20:25)
[2024-01-11] MEDS: Fluconazole 100 MG TAB PO SCH (23:23)
[2024-01-12 18:17] VITALS: TEMP 98
[2024-01-12 18:19] VITALS: BP 134/78
[2024-01-12] MEDS ORDERED: Fluconazole 100 MG TAB PO SCH (21:00)
== END 2024-01-12 16:30 | disposition home or self-care (01) | DRG 177 ==
LOC: ERS 17:03 → 2SE 21:41 → OBSVTOIN 01-08 18:17
PROVIDERS: ADMIT Student in an Organized Health Care Education/Training Program; ATTEND Family Medicine
PROC: XW033E5 Introduction of Remdesivir Anti-infective into Peripheral Vein, Percutaneous Approach, New Technology Group 5 (ICD-10-PCS; principal; 2024-01-08)
DX: U07.1 COVID-19 (principal); J12.82 Pneumonia due to coronavirus disease 2019; Z68.41 Body mass index [BMI] 40.0-44.9, adult; B37.81 Candidal esophagitis; L20.9 Atopic dermatitis, unspecified; L93.1 Subacute cutaneous lupus erythematosus; I10 Essential (primary) hypertension; Z79.01 Long term (current) use of anticoagulants; Z79.899 Other long term (current) drug therapy; Z79.82 Long term (current) use of aspirin; Z91.041 Radiographic dye allergy status; Z88.2 Allergy status to sulfonamides; F41.9 Anxiety disorder, unspecified; F32.A Depression, unspecified; E66.01 Morbid (severe) obesity due to excess calories
CPT/HCPCS: 36415; 36416; 70450; 70496; 70498; 70551; 71045; 72141; 80048; 80061; 80076; 80202; 82565; 83036; 83615; 84145; 84443; 85025; 85610; 85730; 86141; 93005; 94760; 96374; 96375; 96376; J0248; J0456; J1200; J1450; J2060; J2270; J2272; J2920; J2930; J3370; J3370-JW; J7050; J7512; Q9967; S0028